=== PATIENT | male | born 1985 | race Caucasian/White ===

== ENCOUNTER 2018-11-23 20:31 | Emergency (ER) | payer OTHER ==
[2018-11-23] MEDS: HYDROCODONE/APAP (5/325) TAB PO (22:17)
[2018-11-23] MEDS: IBUPROFEN 600 MG TAB PO (22:17)
== END 2018-11-23 23:36 | disposition home or self-care (01) ==
LOC: FTE 23:36
DX: S52.122A Displaced fracture of head of left radius, initial encounter for closed fracture (principal); S52.132A Displaced fracture of neck of left radius, initial encounter for closed fracture; F17.210 Nicotine dependence, cigarettes, uncomplicated; W01.0XXA Fall on same level from slipping, tripping and stumbling without subsequent striking against object, initial encounter; Y92.310 Basketball court as the place of occurrence of the external cause
CPT/HCPCS: 29105; 73080-RT; 99283-25

== ENCOUNTER 2018-12-15 10:45 | Emergency (ER) | payer OTHER | END 2018-12-15 13:10 | disposition home or self-care (01) | LOC: FTE 10:45 | DX: S42.401A Unspecified fracture of lower end of right humerus, initial encounter for closed fracture (principal); F17.210 Nicotine dependence, cigarettes, uncomplicated; S69.91XA Unspecified injury of right wrist, hand and finger(s), initial encounter; X58.XXXA Exposure to other specified factors, initial encounter; Y92.9 Unspecified place or not applicable | CPT/HCPCS: 29105; 73110-RT; 99283-25 ==